=== PATIENT | female | born 1975 | race Caucasian/White ===

== ENCOUNTER 2016-04-20 19:14 | Emergency (ER) | payer OTHER ==
[2016-04-20 19:41] VITALS: BP 106/61; PULSE 86; TEMP 98.6; BMI 28.3
--- NOTE | 2016-04-20 20:02 | PDOC ---
History of Present Illness - General Chief Complaint: Pain, Acute Stated Complaint: ABCESS BOIL/HEADACHE/LT ARM PAIN Time Seen by Provider: 04/20/16 19:45 History Source: Patient Exam Limitations: No Limitations - History of Present Illness Initial Comments: CHIEF COMPLAINT: 40 y/o afebrile female with no significant PMH c/o painful area to her left armpit. HISTORY OF PRESENT ILLNESS: The patient states the area has been swollen and painful for 3 days. She denies f/c, n/v/d, redness/warmth to the affected area , nipple discharge. The patient admits many years ago she had to have multiple calicified bumps removed from her breasts in [place]. Vital signs on arrival are within normal limits. REVIEW OF SYSTEMS: GENERAL/CONSTITUTIONAL: No fever/chills. No weakness. No weight change. HEAD, EYES, EARS, NOSE AND THROAT: No change in vision. No ear pain or discharge. No sore throat. GENITOURINARY: No dysuria, frequency, or change in urination. MUSCULOSKELETAL: No joint or muscle swelling or pain. No neck or back pain. SKIN: Painful bump to left armpit. NEUROLOGIC: No headache, verti' \go, loss of consciousness, or loss of sensation. PHYSICAL EXAM: GENERAL: The patient is awake, alert, and fully oriented, in no acute distress. HEAD: Normal with no signs of trauma. EYES: Pupils equal, round and reactive to light, extraocular movements intact, sclera anicteric, conjunctiva clear. BREASTS: Symmetrical breasts. No terry d'orange. No nipple inversion. No discharge expressed from nipples. Hard, moveable lesion, about 3cm in diameter with well defined borders to left upper outer quadrant of left breast that is TTP. 2cm in diameter, moveable and hard lesion in right upper outer quadrant of right breast that is TTP. EXTREMITIES: Normal range of motion, no edema. NEUROLOGICAL: Normal speech, normal gait. PSYCH: Normal mood, normal affect. SKIN: 4cm in diameter hard, moveable, tender axillary lymph node with well defined borders. No surrounding erythema, warmth or streaking. Past History - Past Medical History Allergies/Adverse Reactions: Allergies Allergy/AdvReac Type Severity Reaction Status Date / Time No Known Allergies Allergy Verified 04/20/16 19:38 Home Medications: Ambulatory Orders Cephalexin Monohydrate [Keflex -] 500 mg PO BID #14 capsule 04/20/16 - Psycho/Social/Smoking Cessation Hx Suicidal Ideation: No Smoking History: Never smoked Have you smoked in the past 12 months: No Information on smoking cessation initiated: No Hx Alcohol Use: No Drug/Substance Use Hx: No *Physical Exam - Vital Signs Last Vital Signs Temp Pulse Resp BP Pulse Ox 98.6 F 86 18 106/61 99 04/20/16 19:38 04/20/16 19:38 04/20/16 19:38 04/20/16 19:38 04/20/16 19:38 Medical Decision Making - Medical Decision Making A/P: 40 y/o female with abnormal lesion to b/l breasts and axillary lymphadenopathy. Will most likely need surgical removal and biopsy. Will treat with PO keflex. Instructed the patient to call Dr. Saldana on Saturday to set up f/u appointment as soon as possible. Suggested she also apply hot compresses and take Motrin for pain if needed. Strongly encouraged prompt follow up and she says she will. The patient verbalizes understanding of all instructions, has no further questions and is awaiting discharge. *DC/Admit/Observation/Transfer Diagnosis at time of Disposition: Breast anomaly, Lymph node enlargement - Discharge Dispostion Disposition: HOME Condition at time of disposition: Stable - Prescriptions Prescriptions: Cephalexin Monohydrate [Keflex -] 500 mg PO BID #14 capsule - Referrals Referrals: Nitin Saladna MD [Staff Physician] - (Call saturday) - Patient Instructions Printed Discharge Instructions: DI for Breast Mass -- Uncertain Cause, DI for Lymphadenopathy Additional Instructions: Discharge Instructions: -Take antibiotics as prescribed -Take 600mg of Motrin for pain if needed -Apply hot compresses to affected area multiple times per day -Call Dr. Saldana on Saturday morning to set up follow up appointment -Return to the ER with any worsening or concerning symptoms Print Language: CONGOLESE
[2016-04-20] MEDS ORDERED: IBUPROFEN 600 MG TABLET (FP) PO ONE (20:05)
[2016-04-20] MEDS ORDERED: CEPHALEXIN MONOHYDRATE 500 MG CAPSULE (UD) PO ONE (20:05)
== END 2016-04-20 20:32 | disposition home or self-care (01) ==
LOC: JERFT 19:14
DX: R59.0 Localized enlarged lymph nodes (principal)
CPT/HCPCS: 99281-25